=== PATIENT | female | born 1995 | race Caucasian/White ===

== ENCOUNTER 2024-03-24 23:55 | Emergency (ER) | payer SELFPAY ==
[2024-03-24 23:57] VITALS: BP 110/77; PULSE 74; RESP 15; TEMP 36.9; O2SAT 99
--- NOTE | 2024-03-25 02:25 | EDS_ITS ---
HPI History of Present Illness Chief Complaint: Dizziness Informant: patient and friend Narrative Narrative: Patient is a 28-year-old female who reports no significant past medical history. She states this evening her and her friend went out to a bar and there is a short timeframe where other drinks were unattended. She states after returning back to her drink and taking a few sips she felt like it tasted weird. She states she still drank the drink however and then afterwards began feeling off. She states after returning home she stood up to walk to the bathroom and as she was doing so began to feel lightheaded and dizzy and had a bout of syncope. She states that she did not strike her head nor does she have a history of being disorder or take blood thinner. However she is continue to feel off and secondary to this comes in for evaluation [facility] Allergy/AdvReac Type Severity Reaction Status Date / Time morphine Allergy Mild Swelling Verified 03/24/24 23:57 Social History Smoking Status: Never smoker ROS ROS ED Constitutional Constitutional ED: Denies chills or fever(s) Eyes Eyes: Denies blurry vision or change in vision ENT ENT ED: Denies sore throat Cardiovascular Cardiovascular: Reports other Details: Positive syncope ; Denies chest pain or palpitations Respiratory/Chest Respiratory/Chest: Denies cough or dyspnea Gastrointestinal Gastrointestinal: Denies abdominal pain, diarrhea, nausea or vomiting Genitourinary Genitourinary ED: Denies dysuria Musculoskeletal Musculoskeletal: Denies back pain or neck pain Integumentary Denies rash Neurologic Neurologic: Denies headache(s), paresthesias or weakness Hematologic/Lymphatic Hematologic/Lymphatic: Denies easy bleeding or easy bruising EXAM Physical Exam Const Vital Signs: 03/24/24 23:57 03/25/24 02:44 Temperature 98.5 F 97 F L Temperature Source Oral Pulse Rate 74 70 Respiratory Rate 15 18 Blood Pressure 110/77 115/78 Blood Pressure Mean 88 90 Pulse Ox 99 96 Oxygen Delivery Method Room Air Positive well nourished and well developed General Appearance ED: well developed; Negative for pallor HEENT Denies dry mucous membranes HEENT Narrative: Normocephalic atraumatic Mucous membranes are dry and tacky No tongue or cheek biting to suggest seizure activity Mouth ED: No dry mucous membranes Mouth: No dry mucous membranes Eyes EOMs intact bilaterally Eyes Narrative: Pupils are dilated and sluggish to respond to light Scleral injection is noted bilaterally as well General Eye ED: Negative for scleral icterus Neck supple Neck Narrative: No bony deformity or step-off of the cervical spine no midline tenderness to palpation No meningeal signs Resp normal respiratory effort and clear to auscultation bilaterally Cardio regular rate and regular rhythm Rate: other Other Details: Heart is regular rate and rhythm without murmurs rubs or gallop Radial and carotid pulses are equal and symmetric GI normal to inspection, nondistended, normoactive bowel sounds, non-tender, non- distended and no masses Auscultation: normoactive bowel sounds Palpation: soft Back/Spine Back/Spine Narrative: No bony deformity or step-off of the thoracic or lumbar spine no midline tenderness to palpation Extremity normal to inspection Neuro oriented x3, CN's II-XII intact bilaterally and no sensory deficits noted Neuro Narrative: GCS of 15 Cranial nerves II through XII are grossly intact without focal neurologic deficit No truncal ataxia no pronator drift no dysmetria NIH stroke scale score of 0 Sensorium / Orientation: alert Motor Exam: strength 5/5 throughout Psych mental status grossly normal Skin no rashes or lesions noted and no wounds General Skin Exam: Negative for jaundice or pallor MDM MDM MDM Narrative Medical decision making narrative: Patient arrived to the ER with stable vitals. Her history and exam is concerning for orthostatic syncope and/or alcohol intoxication or illicit drug use. I discussed with patient the safest option is to obtain blood work in order to check for acute blood loss anemia acute kidney injury or electrolyte abnormality as a cause of her symptoms. Based on her history and exam with a dilated and sluggish to respond pupils there is concern for potential drug ingestion. She did request a drug screen but did not want any further treatment or testing option. Cocaine is positive for THC but otherwise negative. Patient's vitals remained stable. She did not have any nystagmus to suggest vertigo and there was no truncal ataxia going against a posterior circulation stroke. Therefore at this time as her symptoms have improved/resolved she is able to ambulate with a steady gait vital signs are negative and she does not want further workup she will be discharged home and can follow-up as an outpatient History & Record Review Discussion w/independent historian: Patient and Friend Lab Data Attestation: I reviewed the patient's lab results. Labs: Laboratory Results - last 24 hr 03/25/24 02:32 Urine Opiates Screen NEGATIVE Urine Methadone Screen NEGATIVE Ur Barbiturates Screen NEGATIVE Ur Phencyclidine Scrn NEGATIVE Ur Amphetamines Screen NEGATIVE MDMA (Ecstasy) Screen NEGATIVE U Benzodiazepines Scrn NEGATIVE Urine Cocaine Screen NEGATIVE U Cannabinoids Screen POSITIVE H Ur Drug Screen Comment Discharge Plan Triage Chief Complaint: Dizziness ED Provider: Eric Gerard Dx/Rx/DC Orders Clinical Impression: Syncope and collapse Instructions: Causes of Syncope Primary Care Provider: Krystle Tapia Referrals: Krystle Tapia MD [Primary Care Provider] - Activity Restrictions/Additional Instructions: Please keep yourself well-hydrated and return to the ER should you have any further concerns or worsening of symptoms Print Language: Brazilian Disposition Disposition: Home, Self Care Discharge Date/Time: 03/25/24 02:45
[2024-03-25 02:44] VITALS: BP 115/78; PULSE 70; RESP 18; TEMP 36.1; O2SAT 96
[2024-03-25 03:06] LABS: Amphetamine Urine VISTA NEGATIVE (<1000 ng/mL); Barbiturate Urine VISTA NEGATIVE (< 200 ng/mL); Benzodiazepine Urine VISTA NEGATIVE (< 200 ng/mL); Cocaine Urine VISTA NEGATIVE (< 300 ng/mL); Ecstacy Urine VISTA NEGATIVE (< 500 ng/mL); Methadone Urine VISTA NEGATIVE (< 300 ng/mL); PCP Urine VISTA NEGATIVE (< 25 ng/mL); THC Urine VISTA POSITIVE (< 50 ng/mL); Vista UDS pH Range 5
== END 2024-03-25 02:45 | disposition home or self-care (01) ==
PROVIDERS: Emergency Provider Emergency Medicine; Visit Provider Emergency Medicine
DX: R55 Syncope and collapse (principal)
CPT/HCPCS: 80307; 99282